=== PATIENT | male | born 1980 | race Caucasian/White ===

== ENCOUNTER 2024-06-28 10:12 | Emergency (ER) | payer MEDICAID ==
[~2024-06-28] VITALS: Ht 172.7 cm; Wt 65.0 kg
[2024-06-28 10:15] VITALS: O2SAT 99
[2024-06-28 10:17] VITALS: TEMP 36.5; O2SAT 98
[2024-06-28 12:23] VITALS: BP 124/80; PULSE 75; RESP 14; TEMP 97.7
[2024-06-28] MEDS: KETOROLAC 30MG/ML VIAL IM ONE (12:23)
[2024-06-28] MEDS: ACETAMINOPHEN 325MG TABLET PO STA (12:23)
[2024-06-28 12:34] LABS: CHLORIDE 105 mEq/L (98-107); SODIUM 142 mEq/L (136-145)
[2024-06-28 12:35] LABS: CARBON DIOXIDE 29 mEq/L (21-32)
[2024-06-28 12:36] LABS: CALCIUM 10.1 mg/dL (8.7-10.4)
[2024-06-28 12:40] LABS: BASOPHILS % 0.9 % (0.0-2.0); CREATININE 0.7 mg/dL (0.6-1.3); GLUCOSE 96 mg/dL (70-105); HEMATOCRIT. 42.7 % (42.0-52.0); HEMOGLOBIN. 14.3 g/dL (14.0-18.0); LYMPHOCYTES % 25.8 % (20.0-50.0); MEAN CORPUSCULAR HEMOGLOBIN 29.6 pg (28.0-32.0); MEAN CORPUSCULAR HGB CONC 33.5 g/dL (31.0-37.0); MEAN CORPUSCULAR VOLUME 88.2 fL (80.0-94.0); MEAN PLATELET VOLUME 7.7 fl (7.4-10.4); MONOCYTES % 9.6 % (2.0-8.0); NEUTROPHILS % 58.7 % (40.0-76.0); PLATELET 336 x1000/uL (130-400); RED BLOOD CELL COUNT 4.85 mill/uL (4.7-6.1); WHITE BLOOD COUNT 6.3 x1000/uL (4.5-11.0)
[2024-06-28 12:41] LABS: UREA NITROGEN BLOOD 14 mg/dL (9-23)
[2024-06-28] MEDS ORDERED: IBUP-2029 MT (14:33)
[2024-06-28] MEDS ORDERED: TOPUD PO (14:33)
== END 2024-06-28 14:44 | disposition home or self-care (01) ==
LOC: ER 10:12
DX: K02.9 Dental caries, unspecified (principal); M86.8X8 Other osteomyelitis, other site; J34.1 Cyst and mucocele of nose and nasal sinus; J45.909 Unspecified asthma, uncomplicated; K04.7 Periapical abscess without sinus
CPT/HCPCS: 99285; 70486; 80048; 85025; 36415; 96372; J1885